=== PATIENT | male | born 1965 | race Caucasian/White ===

== ENCOUNTER 2023-04-28 10:31 | Outpatient (CLI) | payer BC, SELFPAY ==
--- NOTE | ~2023-04-28 | XR_ITS ---
Clinical Indication: Dyspnea PA and lateral views of the chest: Comparison: None Findings: The lungs are clear, without evidence of focal consolidation or pleural effusion. Cardiome diastinal silhouette is within normal limits. Bones and soft tissues are unremarkable. Impression: Normal chest. Reviewed, dictated and finalized at location . 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
== END 2023-04-28 10:32 | disposition home or self-care (01) ==
PROVIDERS: PCP Internal Medicine; Visit Provider Internal Medicine
DX: R06.00 Dyspnea, unspecified (principal)
CPT/HCPCS: 71046

== ENCOUNTER 2024-11-26 16:32 | Emergency (ER) | payer BC, SELFPAY ==
--- NOTE | 2024-11-26 | CONSULT_PTH ---
PATIENT: Andrea Zepeda LOC: [facility]#:[id number] AGE/SX: 59/M ROOM: RE11/26/[address]: Jaquan Pabon MD : 1965 BED: DIS: 11/26/2024 SPEC #: [id number] RECD: 11/27/24 13:50 STATUS: RHONDA REQ #: [id number] MANISHA: 11/26/24 00:[address]: Jaquan Pabon DEPT: [facility] Consult RECD BY: Paola Hurst MLT, ([facility]) ENTERED: 11/27/24 13:50 SP TYPE: Consult OTHR DR: Manuel Baron MD Tissues: A - Peripheral Smear Procedures: Hematology Consult
--- NOTE | ~2024-11-26 | XR_ITS ---
EXAMINATION: XR chest 1V portable COMPARISON: No comparisons available. HISTORY: Febrile illness, weakness x4 days FINDINGS: The lungs are clear, no effusion. No pneumothorax. Heart is normal size. Mediastinal and hilar contours are within normal limits. Bony thorax no acute abnormality. Miscellaneous: None Impression: No acute cardiopulmonary abnormality. Reviewed, dictated and finalized at location A. Impression: No acute cardiopulmonary abnormality.
[2024-11-26 16:32] VITALS: BP 125/92; PULSE 115; RESP 18; TEMP 37.3; O2SAT 97
--- NOTE | 2024-11-26 17:08 | ED.FEVER ---
HPI - Fever General Chief Complaint: Headache Stated Complaint: fever, aches, diarrhea Time Seen by Provider: 11/26/24 16:59 Source: patient Mode of arrival: ambulatory Limitations: no limitations History of Present Illness HPI Narrative: 59-year-old male with a history of hypertension, status post appendectomy presents to the ED with a 3 day history -- headache which is around his eyes. No radiation of the headache. No nausea / vomiting. No photophobia. No blurred vision. -- Fever with a T-max of 101?. -- Diarrhea. He has had 4 loose stools today. No blood or mucus. No abdominal pain. No nausea / vomiting. MD elicited complaint: fever Onset (ago): day(s) ( Three days) Measured temperature: 101 C Exacerbating factors: nothing Relieving factors: nothing Associated symptoms: denies other symptoms and headache Treatments prior to arrival fever: acetaminophen Related Data Home Medications ?Medication ?Instructions ?Recorded ?Confirmed ?Last Taken ?Type No Home Medications 11/26/24 11/26/24 Unknown History Allergies Allergy/AdvReac Type Severity Reaction Status Date / Time Tetanus Vaccines and Toxoid Allergy Intermediate Unknown Verified 11/26/24 16:44 Review of Systems Review of Systems: All systems reviewed & are unremarkable except as noted in HPI and below Constitutional: Constitutional: Reports as per HPI and Reports no additional constitutional complaints Eyes: Eyes: Reports as per HPI and Reports no additional eye complaints ENT: Reports system reviewed and no additional complaints, except as documented and Reports as per HPI Cardiovascular: Cardiovascular: Reports as per HPI and Reports no additional cardiovascular complaints Respiratory: Respiratory: Reports as per HPI and Reports no additional respiratory complaints Gastrointestinal: Gastrointestinal: Reports as per HPI, Reports no additional gastrointestinal complaints and Reports diarrhea Genitourinary: Genitourinary: Reports no additional male genitourinary complaints and Reports as per HPI Musculoskeletal: Musculoskeletal: Reports no additional musculoskeletal complaints and Reports as per HPI Integumentary/Breasts: Skin/Breast: Reports system reviewed and no additional complaints, except as docu and Reports as per HPI Neurologic: Reports system reviewed and no additional complaints, except as documented and Reports as per HPI Psychiatric: Psychiatric: Reports no additional psychiatric complaints and Reports as per HPI Endocrine: Endocrine: Reports no additional endocrine complaints and Reports as per HPI Hematologic/Lymphatic: Hematologic/Lymphatic: Reports no additional hematologic/lymphatic complaints and Reports as per HPI Allergic/Immunologic: Allergic/Immunologic: Reports no additional allergic/immunologic complaints and Reports as per HPI [facility] Past Medical History Medical History (Updated 11/26/24 @ 19:16 by Jaquan Pabon MD) Hypertension Surgical History Surgical History (Updated 11/26/24 @ 17:23 by Jaquan Pabon MD) History of appendectomy Exam Narrative: temperature of 99.1? Const: General: ill appearing Orientation/consciousness: patient oriented x3 Limitations: no limitations HENMT: Head: normal to inspection Ears: external ears normal and Abnormal EAC present ( right otitis externa) Face/Nose/Sinus: Normal external nose present Face and sinus: normal facial exam Mouth: Yes Normal oral and palatal mucosa present Throat: posterior oropharynx normal Eyes: Conjunctivae: conjunctivae normal Pupils: Equal, round and reactive pupils present EOM: EOMs intact bilaterally Direct Ophthalmoscopy: no photophobia Neck: Neck: normal visual inspection, no lymphadenopathy and no meningeal signs Chest: Chest palpation & inspection: normal inspection of the chest Resp: Effort & Inspection: normal respiratory effort Auscultation: clear to auscultation bilaterally Cardio: Rate: regular rate Rhythm: regular rhythm GI: GI Palp: Yes Soft to palpation Auscultation: normal bowel sounds Other: tenderness right lower quadrant without any rigidity /rebound : General: Yes no CVA tenderness Back/Spine/Pelvis: Back: no CVA tenderness Skin: General skin exam: normal color Rashes: no rashes Wounds: no wounds Neuro: General: patient oriented x3, moves all extremities, no meningeal signs, no focal motor deficits and CN's II-XI intact bilaterally Cranial nerves: Yes Nystagmus not present Speech: normal speech Extrem: General: normal to inspection and no clubbing, cyanosis or edema Psych: Appearance: grossly normal Mental Status: mental status grossly normal Affect: normal affect Attitude: cooperative 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 febrile illness-- patient was noted to have a white cell count of 1.7 and thrombocytopenia with platelet count of 94. Patient tested negative for RSV / influenza/ COVID and strep. diarrhea-- Repeated abdominal examination did not show any tenderness/rigidity / rebound. Advised the patient to return to the ED if he has ongoing abdominal pain and fever. Renal insufficiency with a BUN/creatinine of 15/1.32. Will give IV fluids. patient feels better after IV fluids. Vital Signs Vital signs: Vital Signs Temperature 37.3 C 11/26/24 16:32 Pulse Rate 115 H 11/26/24 16:32 Respiratory Rate 18 11/26/24 16:32 Blood Pressure 125/92 H 11/26/24 16:32 Pulse Oximetry 97 11/26/24 16:32 Oxygen Delivery Room Air 11/26/24 16:32 Temperature 37.3 C 11/26/24 16:32 Pulse Rate 115 H 11/26/24 16:32 Respiratory Rate 18 11/26/24 16:32 Blood Pressure 125/92 H 11/26/24 16:32 Pulse Oximetry 97 11/26/24 16:32 Oxygen Delivery Room Air 11/26/24 16:32 MDM - Fever MDM Narrative Medical decision making narrative: Febrile illness renal insufficiency neutropenia/thrombocytopenia Differential Diagnosis Differential diagnosis: Likely gastroenteritis and viral infection Medical Records Attestation: I reviewed the patient's medical records. Lab Data Attestation: I reviewed the patient's lab results. 11/26/24 17:34 11/26/24 17:34 Labs: Lab Results 11/26/24 Range/Units 17:34 WBC 1.7 L* (4.8-10.8) K/mm3 RBC 4.52 L (4.70-6.10) M/mm3 Hgb 15.3 (14.0-18.0) g/dL Hct 43.0 (40.0-54.0) % MCV 95.1 (78.0-102.0) fL MCH 33.8 H (27.0-31.0) pg MCHC 35.6 (32-36) g/dL RDW 12.1 (11.6-14.4) % Plt Count 94 L (150-420) K/mm3 MPV 9.4 (8.7-11.0) fl Immature Gran % (Auto) Not Reportable Neut % (Auto) Not Reportable Lymph % (Auto) Not Reportable [facility] % (Auto) Not Reportable Eos % (Auto) Not Reportable Baso % (Auto) Not Reportable Lymph # (Auto) Not Reportable [facility] # (Auto) Not Reportable Eos # (Auto) Not Reportable Baso # (Auto) Not Reportable Abs Immat Gran (auto) Not Reportable Absolute Neuts (auto) Not Reportable Absolute Nucleated RBC Not Reportable Neutrophils % (Manual) 58 (46-73) % Band Neutrophils % 0 (0-6) % Lymphocytes % (Manual) 36 (18-44) % Monocytes % (Manual) 6 (3-9) % Nucleated RBC % Not Reportable Abs Neuts (Manual) 0.98 L (1.3-6.7) K/mm3 Abs Lymphs (Manual) 0.61 L (1.1-4.5) K/mm3 Abs Monocytes (Manual) 0.10 (0.1-0.90) K/mm3 Atypical Lymphocytes Present Platelet Estimate Decreased (Adequate) % Immature Plt Fraction 1.4 (1.0-7.0) % Schistocytes None seen Sodium 133 L (137-145) mmol/L Potassium 4.4 (3.4-5.0) mmol/L Chloride 100 (98-107) mmol/L Carbon Dioxide 25 (22-30) mmol/L Anion Gap 8 (4-12) mmol/L BUN 15 (9-20) mg/dL Creatinine 1.32 H (0.7-1.3) mg/dL Estim Creat Clear Calc 68 ml/min Estimated GFR 56 L (59 - ) Glucose 90 (65-110) mg/dL Calculated Osmolality 276 L (285-295) mOsm/kg Lactic Acid 0.7 (0.4-2.0) mmol/L Calcium 8.4 (8.4-10.2) mg/dL Total Bilirubin 0.4 (0.2-1.3) mg/dL AST 65 H (17-59) U/L ALT 44 (6-50) U/L Alkaline Phosphatase 56 (38-126) U/L Total Protein 7.9 (6.3-8.2) g/dL Albumin 4.0 (3.5-5.1) g/dL Lipase 96 (23-300) U/L Urine Color Light yellow (Yellow) Urine Appearance Clear (Clear) Urine pH 5.5 (5.0-8.0) Ur Specific [place] 1.020 (1.010-1.020) Urine Protein Negative (Negative) Urine Glucose (UA) Negative (Negative) Urine Ketones Negative (Negative) Ur Blood (Man) Trace-intact H (Negative) Urine Nitrate Negative (Negative) Urine Bilirubin Negative (Negative) Urine Urobilinogen 0.2 (0.2-1.0) mg/dL Leukocyte Esterase Rfl Negative (Negative) PEPE/UL Influenza A (RT-PCR) Negative (Negative) Influenza B (RT-PCR) Negative (Negative) RSV (RT-PCR) Negative (Negative) SARS-CoV-2 RNA (RT-PCR) Negative (Negative) Discharge Plan Discharge Clinical Impression: Acute febrile illness, Acute renal insufficiency Diarrhea Qualifiers: Diarrhea type: unspecified type Qualified Code(s): R19.7 - Diarrhea, unspecified Patient Disposition: Home Condition: Stable Instructions: Antibiotic Form, Dehydration (ED), Fever in Adults (ED) Patient Language: Nigerien Prescriptions: No Action No Home Medications Follow-up/Referrals: Manuel Baron MD [Primary Care Provider, Internal Medicine] Time of Disposition: 19:16
[2024-11-26] MEDS: ACETAMINOPHEN 500 MG TABLET 1000 MG PO (17:35)
[2024-11-26 17:42] LABS: Add Urine Microscopic? NO; Appearance Urine Clear (Clear); Glucose Urine UA Negative (Negative); Hematocrit 43.0 % (40.0-54.0); Hemoglobin 15.3 g/dL (14.0-18.0); Immature Platelet Fraction Pct 1.4 % (1.0-7.0); Leukocyte Esterase Ur Negative LEU/UL (Negative); Mean Corpuscular HGB Conc 35.6 g/dL (32-36); Mean Corpuscular Hemoglobin 33.8 pg (27.0-31.0); Mean Corpuscular Volume 95.1 fL (78.0-102.0); Nitrate Urine Negative (Negative); Platelet Count Result 94 K/mm3 (150-420); Red Blood Count 4.52 M/mm3 (4.70-6.10); Specific Grav Ur 1.020 (1.010-1.020)
--- NOTE | 2024-11-26 17:42 | PC.NURSE ---
covid culture sent to lab
[2024-11-26 17:45] LABS: White Blood Count 1.7 K/mm3 (4.8-10.8)
[2024-11-26 17:53] LABS: Alanine Aminotransferase 44 U/L (6-50); Albumin Level 4.0 g/dL (3.5-5.1); Alkaline Phosphatase 56 U/L (38-126); Anion Gap 8 mmol/L (4-12); Aspartate Amino Transferase 65 U/L (17-59); Bilirubin,Total 0.4 mg/dL (0.2-1.3); Blood Urea Nitrogen 15 mg/dL (9-20); Calcium 8.4 mg/dL (8.4-10.2); Carbon Dioxide 25 mmol/L (22-30); Chloride 100 mmol/L (98-107); Estimated CRCL calculation 68 ml/min; Estimated Glomerular Filt Rate 56; Glucose 90 mg/dL (65-110); Lipase 96 U/L (23-300); Osmolality Calculated 276 mOsm/kg (285-295); Potassium 4.4 mmol/L (3.4-5.0); Sodium 133 mmol/L (137-145); Total Protein 7.9 g/dL (6.3-8.2)
[2024-11-26 18:16] LABS: Influenza A QL RT-PCR Negative (Negative); Influenza B QL RT-PCR Negative (Negative); RSV RNA, RT-PCR Negative (Negative); SARS-CoV-2 RNA PCR Negative (Negative)
[2024-11-26 18:18] LABS: Band Neutrophils Percent 0 % (0-6); Lymphocytes Absolute Manual 0.61 K/mm3 (1.1-4.5); Lymphocytes Percent Manual 36 % (18-44); Monocytes Absolute Manual 0.10 K/mm3 (0.1-0.90); Monocytes Percent Manual 6 % (3-9); Neutrophils Absolute Manual 0.98 K/mm3 (1.3-6.7); Neutrophils Percent Manual 58 % (46-73)
[2024-11-26 18:19] LABS: Schistocytes None Seen
[2024-11-26] MEDS: LACTATED RINGERS 1,000 ML 999 ML IV CONT (18:54)
[2024-11-26 19:33] VITALS: BP 114/65; PULSE 79; RESP 17; TEMP 37; O2SAT 95
== END 2024-11-26 19:33 | disposition home or self-care (01) ==
PROVIDERS: Emergency Provider Internal Medicine Critical Care Medicine; PCP Internal Medicine
DX: N28.9 Disorder of kidney and ureter, unspecified (principal); R50.9 Fever, unspecified; R19.7 Diarrhea, unspecified; I10 Essential (primary) hypertension; Z20.822 Contact with and (suspected) exposure to COVID-19
CPT/HCPCS: 36415; 71045; 80053; 81003; 83605; 83690; 85025; 85055; 87637; 96360; 99283; A9270; J7120